=== PATIENT | male | born 1960 | race Caucasian/White ===

== ENCOUNTER 2022-06-01 15:46 | Emergency (ER) | payer OTHER ==
[2022-06-01 16:04] VITALS: BP 142/80; PULSE 83; RESP 18; TEMP 97.9; BMI 31.6
[2022-06-01] MEDS ORDERED: ALBUTEROL SO4 0.042% IH SOL 1.25 MG/3 ML VIAL.NEB NEB ONE (16:33)
[2022-06-01] MEDS ORDERED: LORATADINE 10 MG TABLET PO ONE (16:33)
[2022-06-01] MEDS ORDERED: ALBUTEROL SO4 2.5/IPRATROPIUM 0.5 INH SOL 3 ML VIAL.NEB. NEB ONE (16:37)
[2022-06-01] MEDS ORDERED: LORATADINE 10 MG TABLET ONE (16:37)
== END 2022-06-01 18:26 | disposition home or self-care (01) ==
LOC: JERFT 15:46
PROC: 3E0F7GC Introduction of Other Therapeutic Substance into Respiratory Tract, Via Natural or Artificial Opening (ICD-10-PCS; principal; 2022-06-01)
DX: J20.9 Acute bronchitis, unspecified (principal); R05.1 Acute cough
CPT/HCPCS: 71046-TC-FY; 87070; 87077; 87651; 99284-25

== ENCOUNTER 2022-09-01 07:55 | Emergency (ER) | payer OTHER ==
[2022-09-01] MEDS ORDERED: LORATADINE 10 MG TABLET PO ONE (08:25)
[2022-09-01 08:26] VITALS: BP 130/88; PULSE 88; RESP 17; TEMP 98.3; BMI 30.9
[2022-09-01] MEDS ORDERED: LORATADINE 10 MG TABLET ONE (08:32)
== END 2022-09-01 09:29 | disposition home or self-care (01) ==
LOC: JERFT 07:55
DX: J02.9 Acute pharyngitis, unspecified (principal); R09.82 Postnasal drip; H04.209 Unspecified epiphora, unspecified side; R09.81 Nasal congestion; R05.9 Cough, unspecified; Z20.822 Contact with and (suspected) exposure to COVID-19
CPT/HCPCS: 0241U-QW; 87651; 99283-25